=== PATIENT | male | born 1965 | race Caucasian/White ===

== ENCOUNTER → 2016-07-31 | Outpatient (CLI) | payer BC ==
[~2016-07-31] MED LIST: CLON0.5T20 PO; ESCI5TAB PO; GING550C PO; OXYC-57 PO
[2016-07-31 17:06] LABS: HEMATOCRIT 47.3 % (42-52); MEAN CELL VOLUME 95.9 fL (80-100); MEAN CORPUSCULAR HEMOGLOBIN 33.7 pg (25-34); MEAN CORPUSCULAR HGB CONC 35.1 g/dl (32-36); MEAN PLATELET VOLUME 9.6 fL (7.4-10.4); PLATELET COUNT 253 K/uL (130-400); RED BLOOD COUNT 4.93 M/uL (4.7-6.1); WHITE BLOOD COUNT 5.71 K/uL (4.8-10.8)
[2016-07-31 17:22] LABS: ALT/SGPT 23 U/L (12-78); BLOOD UREA NITROGEN 13 mg/dl (7-18); BUN/CREATININE RATIO 11.9 (10-20); CARBON DIOXIDE 29 mmol/L (21-32); CHLORIDE 109 mmol/L (98-107); GLUCOSE 75 mg/dl (70-99); POTASSIUM 3.8 mmol/L (3.5-5.1); SODIUM 143 mmol/L (136-145)
[2016-07-31 17:32] LABS: ALKALINE PHOSPHATASE 83 U/L (45-117); AST/SGOT 19 U/L (15-37)
[2016-07-31 18:05] LABS: CALCIUM 9.4 mg/dl (8.5-10.1)
== END | disposition home or self-care (01) ==
LOC: C.LABBC 14:34
PROVIDERS: ATTEND Physician Assistant Medical
DX: R53.83 Other fatigue (principal); K59.00 Constipation, unspecified

== ENCOUNTER 2016-08-13 19:01 | Emergency (ER) | payer BC ==
[~2016-08-13] VITALS: Ht 188 cm; Wt 89.7 kg
[2016-08-13 19:15] VITALS: TEMP 36.6; Ht 188 cm; Wt 89.7 kg
[2016-08-13 20:22] LABS: URINE APPEARANCE CLEAR (CLEAR); URINE BILIRUBIN NEG (NEG); URINE COLOR DK YELLOW; URINE NITRITE NEG (NEG); URINE SPECIFIC GRAVITY 1.024 (1.000-1.030); UROBILINOGEN NEG (NEG)
[2016-08-13 20:27] LABS: MANUAL MICROSCOPIC REQUIRED? NO; REVIEW REQ? NO
[2016-08-13 20:27] LABS: BASO % 0.6 %; BASO ABS # 0.04 K/uL (0-0.2); COMPLETE YES; EOS % 1.9 %; HEMATOCRIT 46.5 % (42-52); IG% 0.2 %; LYMPH % 40.1 %; LYMPH ABS # 2.54 K/uL (1.2-3.4); MEAN CELL VOLUME 96.5 fL (80-100); MEAN CORPUSCULAR HEMOGLOBIN 33.6 pg (25-34); MEAN CORPUSCULAR HGB CONC 34.8 g/dl (32-36); MEAN PLATELET VOLUME 9.2 fL (7.4-10.4); MONO % 9.5 %; NEUT % 47.7 %; PLATELET COUNT 250 K/uL (130-400); RED BLOOD COUNT 4.82 M/uL (4.7-6.1); WHITE BLOOD COUNT 6.34 K/uL (4.8-10.8)
[2016-08-13 20:45] LABS: ACETAMINOPHEN < 2 ug/ml (10-30); ALT/SGPT 27 U/L (12-78); BLOOD UREA NITROGEN 15 mg/dl (7-18); BUN/CREATININE RATIO 13.3 (10-20); CARBON DIOXIDE 27 mmol/L (21-32); CHLORIDE 106 mmol/L (98-107); GLUCOSE 93 mg/dl (70-99); POTASSIUM 3.8 mmol/L (3.5-5.1); SODIUM 139 mmol/L (136-145)
[2016-08-13 20:47] LABS: BENZODIAZEPINE, URINE NEG (NEG); COCAINE,URINE NEG (NEG); PHENCYCLIDINE, URINE NEG (NEG)
[2016-08-13 20:55] LABS: ALKALINE PHOSPHATASE 89 U/L (45-117); AST/SGOT 18 U/L (15-37)
[2016-08-13 21:55] LABS: CALCIUM 9.2 mg/dl (8.5-10.1)
[2016-08-13 22:09] VITALS: BP 132/89; PULSE 71; O2SAT 97
--- NOTE | 2016-08-14 00:20 | EMERGENCY ROOM VISIT NOTE ---
History Report prepared by Lucrecia: Sushma Rivers Under the Supervision of: Dr. Darryn Aragon M.D. First contact with patient: 19:34 Chief Complaint: PSYCHIATRIC PROBLEMS Stated Complaint: ANXIETY History of Present Illness The patient is a 50 year old male who presents to the Emergency Room with complaints of persistent anxiety starting 6 months ago. He has a surgery for kidney cancer 6 months ago and he has been feeling anxious since. He is anxious about his health problems. He is on Lexapro and clonazepam. He reports being low appetite, unable to sleep well and being low energy. He feels depressed. He is often gassy and bloated. He was placed on Remeron for 1-2 weeks which caused him to have black stools. That has resolved after he stopped taking Remeron. He states he does get angry sometimes and slams doors and throws things. He had some lower leg numbness and foot tingling today which has resolved. He denies any thoughts of hurting himself or others. He denies any urinary symptoms. He denies taking a lot of Tylenol. He denies any alcohol or drug use. He is currently a smoker. His [id number] reports that his family is very concerned over his depression and thoughts of hurting himself. Source of History: patient, family Onset: 6 months ago Position: other (mental health) Quality: other (anxiety) Timing: other (persistent) Associated Symptoms: No urinary symptoms Note: Pt reports low appetite, unable to sleep, low energy, depressed mood, gassy and bloated, getting angry at times, lower leg numbness and foot tingling. He denies thoughts of hurting self or others. Review of Systems See HPI for pertinent positives & negatives. A total of 10 systems reviewed and were otherwise negative. Past Medical & Surgical Medical Problems: (1) Renal mass, right Old medical records were reviewed. Nurse's notes were reviewed and I agree with. Family History No pertinent family history stated. Social History Smoking Status: Current Every Day Smoker Marital Status: Occupation Status: unemployed Current/Historical Medications Scheduled Clonazepam (Clonazepam Odt), 0.5 MG PO BID Audelia (Zingiber Officinalis) (Audelia Root), 550 MG PO BID Allergies Coded Allergies: Apple (Verified Allergy, Intermediate, "FEEL FUNNY IN THE LEGS"., 08/13/16) Bupropion (Verified Allergy, Unknown, INCREASED ANXIETY, 08/13/16) Escitalopram (Verified Allergy, Unknown, MADE FEEL MORE ANXIOUS, 08/13/16) Food (Verified Allergy, Unknown, BANANAS-"FEELS FUNNY IN LEGS", 08/13/16) Pork (Verified Allergy, Unknown, "DOESN'T FEEL RIGHT", 08/13/16) Physical Exam Vital Signs Date Time Temp Pulse Resp B/P Pulse Ox O2 Delivery O2 Flow Rate FiO2 08/13/16 22:09 71 16 132/89 97 Room Air 08/13/16 19:15 36.6 82 20 129/78 96 Room Air Physical Exam General: Non ill-appearing middle aged male in no acute distress. Well developed well nourished, breathing comfortably on room air. Normal speech HEENT: Normal cephalic atraumatic. Pupils are equal round and reactive to light. Extraocular movements are intact. Oropharynx is pink with moist mucous membranes. No swelling of the mouth lips or tongue. Neck: Supple with a midline trachea. No meningeal signs or stiffness, no JVD or bruits. No Stridor. Chest: Clear to auscultation bilaterally. No wheezes or rhonchi. No increased work of breathing. Heart: regular rate and rhythm. Abdomen: Soft nontender, nondistended without rebound guarding or rigidity. Well healing incision from previous kidney surgery. Extremities: No cyanosis clubbing or edema. No calf tenderness or assymetry Spine/Back. Non tender to palpation. No CVA tenderness Skin: Good turgor without rashes. Neurologic exam: Cranial nerves two through 12 are intact. Motor and sensation are intact and symmetrical throughout. Psych: Complains of depression, denies SI or HI. Medical Decision & Procedures Laboratory Results 08/13/16 20:07 Red Blood Count 4.82, Mean Corpuscular Volume 96.5, Mean Corpuscular Hemoglobin 33.6, Mean Corpuscular Hemoglobin Concent 34.8, Mean Platelet Volume 9.2, Neutrophils (%) (Auto) 47.7, Lymphocytes (%) (Auto) 40.1, Monocytes (%) (Auto) 9.5, Eosinophils (%) (Auto) 1.9, Basophils (%) (Auto) 0.6, Neutrophils # (Auto) 3.03, Lymphocytes # (Auto) 2.54, Monocytes # (Auto) 0.60, Eosinophils # (Auto) 0.12, Basophils # (Auto) 0.04 08/13/16 20:07 Test 08/13/16 20:00 08/13/16 20:07 Urine Color DK YELLOW Urine Appearance CLEAR (CLEAR) Urine pH 5.0 (4.5-7.5) Urine Specific [place] 1.024 (1.000-1.030) Urine Protein NEG (NEG) Urine Glucose (UA) NEG (NEG) Urine Ketones TRACE (NEG) Urine Occult Blood NEG (NEG) Urine Nitrite NEG (NEG) Urine Bilirubin NEG (NEG) Urine Urobilinogen NEG (NEG) Urine Leukocyte Esterase NEG (NEG) Urine Opiates Screen NEG (NEG) Urine Methadone, Qualitative NEG (NEG) Urine Barbiturates NEG (NEG) Urine Phencyclidine (PCP) Level NEG (NEG) Ur Amphetamine/Methamphetamine NEG (NEG) MDMA (Ecstasy) Screen NEG (NEG) Urine Benzodiazepines Screen NEG (NEG) Urine Cocaine Metabolite NEG (NEG) Urine Marijuana (THC) NEG (NEG) White Blood Count 6.34 K/uL (4.8-10.8) Red Blood Count 4.82 M/uL (4.7-6.1) Hemoglobin 16.2 g/dL (14.0-18.0) Hematocrit 46.5 % (42-52) Mean Corpuscular Volume 96.5 fL (80-100) Mean Corpuscular Hemoglobin 33.6 pg (25-34) Mean Corpuscular Hemoglobin Concent 34.8 g/dl (32-36) Platelet Count 250 K/uL (130-400) Mean Platelet Volume 9.2 fL (7.4-10.4) Neutrophils (%) (Auto) 47.7 % Lymphocytes (%) (Auto) 40.1 % Monocytes (%) (Auto) 9.5 % Eosinophils (%) (Auto) 1.9 % Basophils (%) (Auto) 0.6 % Neutrophils # (Auto) 3.03 K/uL (1.4-6.5) Lymphocytes # (Auto) 2.54 K/uL (1.2-3.4) Monocytes # (Auto) 0.60 K/uL (0.11-0.59) Eosinophils # (Auto) 0.12 K/uL (0-0.5) Basophils # (Auto) 0.04 K/uL (0-0.2) RDW Standard Deviation 47.8 fL (36.4-46.3) RDW Coefficient of Variation 13.3 % (11.5-14.5) Immature Granulocyte % (Auto) 0.2 % Immature Granulocyte # (Auto) 0.01 K/uL (0.00-0.02) Anion Gap 6.0 mmol/L (3-11) Est Creatinine Clear Calc Drug Dose 95.5 ml/min Estimated GFR () 91.5 Estimated GFR (Non- 79.0 BUN/Creatinine Ratio 13.3 (10-20) Calcium Level 9.2 mg/dl (8.5-10.1) Total Bilirubin 0.2 mg/dl (0.2-1) Direct Bilirubin < 0.1 mg/dl (0-0.2) Aspartate Amino Transf (AST/SGOT) 18 U/L (15-37) Alanine Aminotransferase (ALT/SGPT) 27 U/L (12-78) Alkaline Phosphatase 89 U/L (45-117) Total Protein 6.8 gm/dl (6.4-8.2) Albumin 3.4 gm/dl (3.4-5.0) Lipase 147 U/L (73-393) Thyroid Stimulating Hormone (TSH) 1.980 uIu/ml (0.300-4.500) Salicylates Level 4.9 mg/dl (2.8-20) Acetaminophen Level < 2 ug/ml (10-30) Ethyl Alcohol mg/dL < 3.0 mg/dl (0-3) Laboratory studies as stated above per my review. ED Course 1948: Past medical records reviewed. The patient was evaluated in room A7, and a complete history and physical examination were performed. 5: I reevaluated the patient. He refuses admission. He has no active SI or HI. There are no 302 criteria. He is convinced something medical is causing his anxiety. 2220: Upon reevaluation, the patient is resting comfortably. I discussed the results and treatment plan with him. He verbalized agreement of the treatment plan. The patient was discharged home. Medical Decision Differential diagnoses: depression, anxiety, infection, electrolyte or metabolic abnormality. This patient comes in as described above. He was placed in room A7. Here complaining of anxiety and depression. He says this all stems back to when he had surgery at in the last year. He has not slept well felt well since then. He is scheduled to see a lead enterprise architect and have endoscopy done within the next week. He's had a lot of bloating. He is convinced that his anxiety is related to some physical issue. Multiple blood tests was obtained. He has no white count or fever to suggest infection. He has no acute electrode or metabolic abnormalities. He has normal kidney functions. Urinalysis does not suggest UTI. He has nothing to suggest acute toxicologic process . He denies any suicidal or homicidal ideations. I had Denise, our psychiatric caser , evaluate him as well. We offered him admission for treatment and evaluation of his anxiety. He adamantly declines this. Again he attributes this to some medical problem. At this point, he has nothing that we could involuntarily commit him for, he is not suicidal or homicidal. He will follow-up with his doctor and/or psychiatric doctor this week for recheck and return ER if: worsening of symptoms, thoughts of hurting himself or others, any new problems or concerns. The patient was happy with the plan again declines admission and was discharged home. Impression Primary Impression: Anxiety Additional Impression: Depression Scribe Attestation The scribe's documentation has been prepared under my direction and personally reviewed by me in its entirety. I confirm that the note above accurately reflects all work, treatment, procedures, and medical decision making performed by me. Departure Information Dispostion Home / Self-Care Referrals Billy Guthrie D.O. Pulmonary (PCP) Forms HOME CARE DOCUMENTATION FORM, IMPORTANT VISIT INFORMATION, WORK / SCHOOL INSTRUCTIONS Patient Instructions [facility] Additional Instructions Rest. Drink plenty of fluids. Return if: Worsening of symptoms, thoughts of hurting himself or others, any new problems or concerns. Follow-up with your GI specialist and regular doctor within the next couple days for recheck. Problem Qualifiers
== END 2016-08-13 22:27 | disposition home or self-care (01) ==
LOC: C.EDB 19:04 → C.EDA 22:27
DX: F41.9 Anxiety disorder, unspecified (principal); F32.9 Major depressive disorder, single episode, unspecified; C64.1 Malignant neoplasm of right kidney, except renal pelvis; F17.210 Nicotine dependence, cigarettes, uncomplicated; Z79.899 Other long term (current) drug therapy

== ENCOUNTER → 2016-09-17 | Outpatient (CLI) | payer BC ==
[~2016-09-17] MED LIST changes: -ESCI5TAB PO; -OXYC-57 PO
--- NOTE | 2016-09-17 14:31 | DIAGNOSTIC IMAGING REPORT ---
EXAMINATION: RENAL ULTRASOUND CLINICAL HISTORY: C64.9 Renal carcinoma COMPARISON STUDY: Outside ultrasound dated 01/04/2016 FINDINGS: The right kidney measures 10.7 cm. The left kidney measures 11.7 cm. There is no evidence of hydronephrosis. There is been interval resection of the previous identified solid right renal mass. At the site of resection, there is a 14 mm cortical irregularity containing areas of shadowing. This may represent a postsurgical scar. Serial follow-up will be necessary to exclude a recurrent lesion. No left renal masses are visualized. No bladder abnormalities are visualized. Bilateral ureteral jets were visualized. IMPRESSION : 1. Interval resection of the patient's right renal cell carcinoma 2. 14 mm cortical irregularity at the site of prior neoplasm. This contains areas of shadowing suggesting calcification. The findings may represent a postsurgical scar. Close interval follow-up will be necessary to exclude a recurrent neoplasm. Electronically signed by: Matt Ribeiro M.D. 09/17/2016 2:30 PM Dictated Date/Time: 09/17/2016 2:25 PM
== END ==
LOC: C.ULTR 13:53
PROVIDERS: ATTEND Urology
DX: C64.9 Malignant neoplasm of unspecified kidney, except renal pelvis (principal)

== ENCOUNTER → 2016-10-17 | Day surgery (SDC) | payer BC ==
[2016-10-10 15:09] VITALS: Ht 188 cm; Wt 90.9 kg
[~2016-10-17] VITALS: Ht 188 cm; Wt 90.9 kg
[~2016-10-17] MED LIST changes: +PROPOFOL IV EMULSION 10 MG/ML 20 ML VIAL IV ONE
[2016-10-17 12:12] VITALS: TEMP 36.6
--- NOTE | 2016-10-17 12:41 | Endo History and Physical ---
History & Physical Date of Service: Oct 17, 2016. Chief Complaint: unintentional weight loss Referring Physician: Daria RODRIGUEZ History of Present Illness 51 yo CM who presents for Colonoscopy secondary to unintentional weight loss. Past Surgical History Hx Cardiac Surgery: No Hx Internal Defibrillator: No Hx Pacemaker: No Hx Abdominal Surgery: Yes (ABDOMINAL TUMOR REMOVAL-UNDER AGE 3) Hx of Implantable Prosthesis: No Hx Post-Op Nausea and Vomiting: No Hx Cancer Surgery: Yes (RT PARTIAL NEPHRECTOMY) Hx Thoracic Surgery: No Hx Orthopedic: No Hx Urinary Tract Surgery: No Family History None Social History Smoking Status: Current Every Day Smoker Hx Substance Use: No Hx Alcohol Use: No Allergies Coded Allergies: BEE STING (Verified Allergy, Unknown, HIVES, 10/10/16) Bupropion (Verified Allergy, Unknown, INCREASED ANXIETY, 06/12/79) Current Medications Reported Home Medications Medications Dose Route/Sig Max Daily Dose Days Date Category Clonazepam Odt (Clonazepam) 0.5 Mg Tab 0.5 Mg PO BID 02/12/16 Reported Audelia Root (Audelia (Zingiber Officinalis)) 550 Mg Cap 550 Mg PO BID 02/12/16 Reported Vital Signs Weight (Kilograms): 90.91 Height (Feet): 6 Height (Inches): 2 Date Time Temp Pulse Resp B/P (MAP) Pulse Ox O2 Delivery O2 Flow Rate FiO2 10/17/16 12:12 36.6 70 18 132/79 (96) 99 Room Air Physical Exam General Appearance: WD/WN, no apparent distress Respiratory/Chest: Auscultation: breath sounds normal Cardiovascular: Heart Auscultation: RRR Abdomen: Bowel Sounds: normal Inspection & Palpation: soft, non-distended, no tenderness, guarding & rebound Assessment and Plan Assessment: 51 yo CM who presents for Colonoscopy secondary to unintentional weight loss. Plan: Proceed with colonoscopy.
--- NOTE | 2016-10-17 13:33 | GI REPORT ---
Procedure Date: 10/17/2016 12:41 PM Procedure: Colonoscopy Indications: Weight loss Medicines: Monitored Anesthesia Care Complications: No immediate complications. Estimated Blood Loss: Estimated blood loss: none. Procedure: Pre-Anesthesia Assessment: - Prior to the procedure, a History and Physical was performed, and patient medications and allergies were reviewed. The patient's tolerance of previous anesthesia was also reviewed. The risks and benefits of the procedure and the sedation options and risks were discussed with the patient. All questions were answered, and informed consent was obtained. Prior Anticoagulants: The patient has taken no previous anticoagulant or antiplatelet agents. ASA Grade Assessment: II - A patient with mild systemic disease. After reviewing the risks and benefits, the patient was deemed in satisfactory condition to undergo the procedure. After I obtained informed consent, the scope was passed under direct vision. Throughout the procedure, the patient's blood pressure, pulse, and oxygen saturations were monitored continuously. The scope was introduced through the anus and advanced to the terminal ileum. The colonoscopy was performed without difficulty. The patient tolerated the procedure well. The quality of the bowel preparation was good. The terminal ileum, ileocecal valve, appendiceal orifice, and rectum were photographed. Findings: Seven sessile polyps were found in the rectum, in the sigmoid colon and in the ascending colon. The polyps were 3 to 4 mm in size. These polyps were removed with a cold snare. Resection and retrieval were complete. Three sessile polyps were found in the sigmoid colon and at the hepatic flexure. The polyps were 5 to 12 mm in size. These polyps were removed with a hot snare. Resection and retrieval were complete. Non-bleeding internal hemorrhoids were found during retroflexion. The hemorrhoids were small. Impression: - Seven 3 to 4 mm polyps in the rectum, in the sigmoid colon and in the ascending colon, removed with a cold snare. Resected and retrieved. - Three 5 to 12 mm polyps in the sigmoid colon and at the hepatic flexure, removed with a hot snare. Resected and retrieved. - Non-bleeding internal hemorrhoids. Recommendation: - Resume previous diet. - Continue present medications. - Repeat colonoscopy for surveillance based on pathology results. - Return to primary care physician as previously scheduled. Samuel Vanegas DO 10/17/2016 1:33:39 PM This report has been signed electronically. Note Initiated On: 10/17/2016 12:41 PM I attest to the content of the Intraoperative Record and orders documented therein, exceptions below
--- NOTE | 2016-10-17 13:34 | Discharge Instructions ---
Endoscopy Patient Instructions Date / Procedure(s) Performed Oct 17, 2016. Colonoscopy Allergy Information Coded Allergies: BEE STING (Verified Allergy, Unknown, HIVES, 10/10/16) Bupropion (Verified Allergy, Unknown, INCREASED ANXIETY, 06/12/79) Discharge Date / Findings Oct 17, 2016. Colon polyps Rectal polyp Internal hemorrhoids Medication Instructions OK to resume all medications today as prescribed Reported Home Medications Medications Dose Route/Sig Max Daily Dose Days Date Category Clonazepam Odt (Clonazepam) 0.5 Mg Tab 0.5 Mg PO BID 02/12/16 Reported Audelia Root (Audelia (Zingiber Officinalis)) 550 Mg Cap 550 Mg PO BID 02/12/16 Reported Provider Instructions Activity Restrictions - No exercising or heavy lifting for 24 hours. - Do not drink alcohol the day of the procedure. - Do not drive a car or operate machinery until the day after the procedure. - Do not make any important decisions or sign important papers in 24 hours after the procedure. Following Day: - Return to full activity which may include returning to work/school. Diet Start your diet with liquids and light foods (jello, soup, juice, toast). Then eat your usual diet if not nauseated. Treatment For Common After Affects For mild abdominal pain, bloating, or excessive gas: - Rest - Eat lightly - Lie on right side Follow-Up Information Follow-up with Daria RODRIGUEZ as scheduled Anesthesia Information What You Should Know You have had a procedure that required some medicine to reduce anxiety and discomfort. This treatment is called moderate sedation. After receiving the treatment, you may be sleepy, but you will be able to breathe on your own. The effects of the treatment may last for several hours. Follow these instructions along with Activity/Diet recommendations noted above: * Do NOT do anything where dizziness or clumsiness would be dangerous. * Rest quietly at home today, then you can be up and about tomorrow. * Have a responsible person stay with you the rest of today. * You may have had an I.V. today. If so, you may take the dressing off later today. Recommendations Call your doctor if: * Trouble breathing * Continuous vomiting for more than 24 hours * Temperature above 101 degrees * Severe abdominal pain or bloating * Pain not relieved by pain medicine ordered * There is increased drainage or redness from any incision * A large amount of rectal bleeding greater than 2-3 tablespoons. (If you had a polyp/s removed or have hemorrhoids, a small amount of blood - from the rectum is to be expected.) * You have any unanswered questions or concerns. IN THE EVENT OF A SERIOUS EMERGENCY, GO TO THE NEAREST EMERGENCY ROOM Your discharge instructions were prepared by provider Samuel Vanegas. Patient Instructions Signature Page Shayne Walden Patient (or Guardian) Signature/Date: I have read and understand the instructions given to me by my caregivers. Caregiver/RN/Doctor Signature/Date: The above-named patient and/or guardian has received patient instructions on this date. + Original Patient Signature Page (only) stays with chart. Please make copy for patient.
[2016-10-17 14:05] VITALS: BP 134/87; PULSE 56; O2SAT 97
--- NOTE | 2016-10-17 14:16 | Anesthesiology Progress Note ---
Anesthesia Post Op Note Date & Time Oct 17, 2016 at 14:16 Vital Signs Pain Intensity: 0 Vital Signs Past 12 Hours Date Time Temp Pulse Resp B/P (MAP) Pulse Ox O2 Delivery O2 Flow Rate FiO2 10/17/16 14:05 56 20 134/87 (103) 97 Room Air 10/17/16 13:50 61 20 122/73 (89) 98 Room Air 10/17/16 13:35 70 16 126/67 (86) 94 Room Air 10/17/16 12:12 36.6 70 18 132/79 (96) 99 Room Air Notes Mental Status: alert / awake / arousable, participated in evaluation Pt Amnestic to Procedure: Yes Nausea / Vomiting: adequately controlled Pain: adequately controlled Airway Patency, RR, SpO2: stable & adequate BP & HR: stable & adequate Hydration State: stable & adequate Anesthetic Complications: no major complications apparent
== END | disposition home or self-care (01) ==
LOC: C.GI 11:46
PROVIDERS: ATTEND Internal Medicine
DX: R63.4 Abnormal weight loss (principal); D12.5 Benign neoplasm of sigmoid colon; D12.3 Benign neoplasm of transverse colon; K62.1 Rectal polyp; K64.8 Other hemorrhoids; Z90.5 Acquired absence of kidney

== ENCOUNTER → 2017-02-25 | Outpatient (CLI) | payer BC ==
[~2017-02-25] MED LIST changes: +OPTIRAY 320 IV PRN; -PROPOFOL IV EMULSION 10 MG/ML 20 ML VIAL IV ONE
[2017-02-25 16:09] LABS: ALT/SGPT 29 U/L (12-78); AST/SGOT 18 U/L (15-37); BLOOD UREA NITROGEN 8 mg/dl (7-18); BUN/CREATININE RATIO 7.3 (10-20); CALCIUM 8.5 mg/dl (8.5-10.1); CARBON DIOXIDE 28 mmol/L (21-32); CHLORIDE 106 mmol/L (98-107); CREATININE 1.12 mg/dl (0.60-1.40); GLUCOSE 103 mg/dl (70-99); POTASSIUM 3.9 mmol/L (3.5-5.1); SODIUM 141 mmol/L (136-145)
[2017-02-25 16:12] LABS: ALB/GLOB RATIO 0.9 (0.9-2); ALKALINE PHOSPHATASE 84 U/L (45-117)
--- NOTE | 2017-02-25 16:18 | DIAGNOSTIC IMAGING REPORT ---
ABD/PELVIS COMBO CLINICAL HISTORY: 51 years-old Male presenting with C64.9 Renal carcinoma, renal mass removed one year ago, follow-up. TECHNIQUE: Multidetector CT of the abdomen was performed before and after the administration of intravenous contrast. IV contrast: 93 mL of Optiray 320. A dose lowering technique was used consistent with the principles of ALARA (as low as reasonably achievable). COMPARISON: 01/10/2016 CT DOSE (mGy.cm): The estimated cumulative dose is 1496.20 mGycm. FINDINGS: Component Design Engineer topogram: Unremarkable. Lung bases: Minimal dependent changes likely atelectasis. Normal heart size. No pericardial or pleural effusion. Liver: Normal morphology. No liver lesion. Patent hepatic vasculature. Biliary: No intrahepatic or extrahepatic biliary ductal dilatation. Normal gallbladder. Pancreas: Normal. Spleen: Normal. Adrenal glands: Normal. Kidneys and ureters: Hyperdense material along the anterior right kidney consistent with postsurgical change. No suspicious nodularity or recurrent soft tissue mass is apparent. No nephrolithiasis. Left kidney normal. No hydronephrosis. Ureters normal. No filling defects in the urinary collecting systems. Bowel: Normal. No bowel obstruction. Peritoneal cavity: No free fluid or intraperitoneal gas. Lymph nodes: Mildly prominent lymph nodes in the stoney hepatis and portacaval regions measuring up to 6 mm in the short axis. Prominent retrocaval lymph node measures 6 mm in the short axis. No pathologically enlarged lymph nodes by CT size criteria. Vasculature: Atherosclerosis of the normal caliber abdominal aorta. IVC patent. Abdominal wall: Normal. Musculoskeletal: Normal. IMPRESSION: 1. Postsurgical changes of right renal mass resection. No suspicious nodularity or new soft tissue to suggest residual or recurrent disease. No lymphadenopathy by CT size criteria. Electronically signed by: Cheikh Arthur M.D. 02/25/2017 4:17 PM Dictated Date/Time: 02/25/2017 4:07 PM
== END | disposition home or self-care (01) ==
LOC: C.CTS 15:03
PROVIDERS: ATTEND Urology
DX: C64.9 Malignant neoplasm of unspecified kidney, except renal pelvis (principal)

== ENCOUNTER → 2017-03-03 | Outpatient (CLI) | payer BC ==
[~2017-03-03] MED LIST changes: -OPTIRAY 320 IV PRN
--- NOTE | 2017-03-03 14:23 | DIAGNOSTIC IMAGING REPORT ---
SOFT TISS HEAD/NECK-THYROID HISTORY: NECK PAIN COMPARISON: None. FINDINGS: Right lobe: Maximum dimension 5.0 cm. Multinodular configuration. Nodules measuring 5 mm at the mid pole, 7 mm lower pole, and 6 mm of the upper pole are present. Mild Baseline in homogeneity of thyroid echogenicity. Multiple microcysts Left lobe: Maximum dimension 5.2 cm. Several mid pole nodules measuring up to 4 and 5 mm respectively. Multiple microcysts Study is negative for a dominant mass or nodule. Thyroid isthmus is uniform. Isthmus: Uniform IMPRESSION: 1. Moderate baseline heterogeneity of both thyroid lobes. 2. No evidence for dominant mass or nodule. 3. Multiple bilateral thyroid microcysts with several sub-7 mm nodules bilaterally The above report was generated using voice recognition software. It may contain grammatical, syntax or spelling errors. Electronically signed by: Mikel Jasso M.D. 03/03/2017 2:22 PM Dictated Date/Time: 03/03/2017 2:19 PM
== END | disposition home or self-care (01) ==
LOC: C.ULTRBC 13:32
PROVIDERS: ATTEND Physician Assistant Medical
DX: M54.2 Cervicalgia (principal); E04.2 Nontoxic multinodular goiter

== ENCOUNTER → 2017-04-23 | Outpatient (CLI) | payer BC | END | disposition home or self-care (01) | LOC: C.LAB 11:43 | PROVIDERS: ATTEND Physician Assistant Medical | DX: R68.82 Decreased libido (principal) ==

== ENCOUNTER → 2017-05-04 | Outpatient (CLI) | payer BC | END | disposition home or self-care (01) | LOC: C.LAB 12:10 | PROVIDERS: ATTEND Physician Assistant Medical | DX: R53.83 Other fatigue (principal); F32.9 Major depressive disorder, single episode, unspecified ==